=== PATIENT | male | born 1995 | race Caucasian/White ===

== ENCOUNTER 2018-06-15 21:41 | Emergency (ER) | payer OTHER ==
[2018-06-15 21:59] VITALS: BP 142/75
[2018-06-15] MEDS ORDERED: Lidocaine 1%* 5 ML VIAL INJ ONE (22:01)
--- NOTE | 2018-06-15 22:17 | ED ---
Laceration/Wound HPI - HPI Summary HPI Summary: 22 yrold male cut chin on hockey helmet strap. No jaw pain. Injury occurred at 8 am. His team cleaned it, put steri strips on it. No other complaints. He requests i remove the steri strips and put stitches in. - History of Current Complaint Stated Complaint: CHIN LACERATION Time Seen by Provider: 06/15/18 22:15 Pain Intensity: 0 - Allergy/Home Medications Allergies/Adverse Reactions: Allergies Allergy/AdvReac Type Severity Reaction Status Date / Time No Known Allergies Allergy Verified 06/15/18 21:51 Home Medications: Home Medications Amoxicillin PO (*) [Amoxicillin 875 MG (*)] 875 mg PO BID 06/15/18 [History Confirmed 06/15/18] PMH/Surg Hx/FS Hx/Imm Hx - Surgical History Surgery Procedure, Year, and Place: 2015 thumb Infectious Disease History: No Infectious Disease History: Reports: Traveled Outside the in Last 30 Days - [facility] - Social History Occupation: Student Alcohol Use: Occasionally Substance Use Type: Reports: None Smoking Status (MU): Never Smoked Tobacco Review of Systems Constitutional: Negative Positive: Other - chin laceration All Other Systems Reviewed And Are Negative: Yes Physical Exam Triage Information Reviewed: Yes Vital Signs On Initial Exam: Initial Vitals Temp Pulse Resp BP Pulse Ox 98 F 70 16 142/75 98 06/15/18 21:53 06/15/18 21:53 06/15/18 21:53 06/15/18 21:53 06/15/18 21:53 Vital Signs Reviewed: Yes Appearance: Positive: Well-Appearing, No Pain Distress Skin: Positive: Warm, Other - 2 cm chin laceration with steri strips already on and approximated. Head/Face: Positive: Normal Head/Face Inspection ENT: Positive: Normal ENT inspection Respiratory/Lung Sounds: Positive: Clear to Auscultation, Breath Sounds Present Cardiovascular: Positive: RRR. Negative: Murmur Abdomen Description: Positive: Nontender Musculoskeletal: Positive: Strength/ROM Intact Neurological: Positive: Sensory/Motor Intact, Alert, Oriented to Person Place, Time, CN Intact II-III Psychiatric: Positive: Normal - [place] Coma Scale Best Eye Response: 4 - Spontaneous Best Motor Response: 6 - Obeys Commands Best Verbal Response: 5 - Oriented Coma Scale Total: 15 Procedures - Laceration/Wound Repair 1 Location: face Description: Linear Anesthesia: Local, 1.0%, [place] Length, Depth and Shape: 2 cm Betadine Prep?: No Irrigated w/ Saline (ccs): 500 Laceration/Wound Explored: clean Closure: Single Layer Suture Type: Nylon Number of Sutures: 2 Layer Closure?: No Sterile Dressing Applied?: No Diagnostics - Vital Signs Vital Signs Temp Pulse Resp BP Pulse Ox 06/15/18 21:53 98 F 70 16 142/75 98 - Laboratory Lab Statement: Any lab studies that have been ordered have been reviewed, and results considered in the medical decision making process. Laceration Repair Course/Dx - Course Course Of Treatment: chin lac repair suture out 5 days. he states his tetanus shot is up to date. - Clinical Impression Provider Diagnoses: Laceration of skin of chin Discharge - Sign-Out/Discharge Documenting (check all that apply): Patient Departure All imaging exams completed and their final reports reviewed: No Studies - Discharge Plan Condition: Good Disposition: HOME Patient Education Materials: Hypertension (ED), Facial Laceration (ED) Referrals: No Primary Care Phys,NOPCP [Primary Care Provider] - Additional Instructions: Return here in 5 days for your suture removal. - Billing Disposition and Condition Condition: GOOD Disposition: Home
== END 2018-06-15 22:21 | disposition home or self-care (01) ==
LOC: UCCORT 21:41
DX: S01.81XA Laceration without foreign body of other part of head, initial encounter (principal); W45.8XXA Other foreign body or object entering through skin, initial encounter; Y93.22 Activity, ice hockey; Y92.39 Other specified sports and athletic area as the place of occurrence of the external cause
CPT/HCPCS: 12011; 99201; G0463